=== PATIENT | female | born 1950 | race Two or more races ===

== ENCOUNTER → 2024-10-31 | Outpatient (CLI) | payer OTHER, MEDICAID, SELFPAY ==
[2024-10-31 10:43] LABS: Basophils % (Auto) 0 % (0-2.5); Eosinophils # (Auto) 0.1 Thou/mm3 (0.0-0.5); Eosinophils % (Auto) 1 % (0-10); Hematocrit 41.4 % (36.0-46.0); Hemoglobin 12.9 g/dL (12.0-16.0); Immature Granulocytes % (Auto) 0 % (0-0); Immature Granulocytes Auto 0.04 Thou/mm3 (0.00-0.00); Lymphocytes # (Auto) 2.4 Thou/mm3 (1.0-4.8); Lymphocytes % (Auto) 23 % (10-50); Mean Corpuscular HGB Conc 31.2 g/dl (31.0-37.0); Mean Corpuscular Volume 87 fL (80-100); Monocytes # (Auto) 0.8 Thou/mm3 (0.0-0.8); Monocytes % (Auto) 8 % (0-12); Neutrophils # (Auto) 6.8 Thou/mm3 (1.8-7.7); Neutrophils % (Auto) 67 % (37-80); Nucleated Red Blood Cell % 0 /100 WBC (0); Platelet Count 372 Thou/mm3 (140-440); RDW Standard Deviation 47.8 fL (36.4-46.3); Red Blood Count 4.77 Miln/mm3 (4.00-5.20); White Blood Count 10.2 Thou/mm3 (3.6-11.0)
[2024-10-31 10:55] LABS: Glucose Estimated Average 197 mg/dL (80-131); Hemoglobin A1C 8.5 % Hgb (4.8-6.0)
[2024-10-31 11:06] LABS: Alanine Aminotransferase 18 U/L (10-49); Albumin, Serum 4.7 gm/dL (3.4-4.8); Alkaline Phosphatase 78 U/L (46-116); Anion Gap 10 (7-16); Aspartate Amino Transferase 21 U/L (0-34); BUN/Creatinine Ratio 26 Ratio (12-20); Bilirubin,Direct 0.1 mg/dL (0.0-0.3); Bilirubin,Total 0.4 mg/dL (0.3-1.2); Blood Urea Nitrogen 23 mg/dL (9-23); Calcium 10.3 mg/dL (8.3-10.6); Carbon Dioxide 29.3 mMol/L (20.0-31.0); Cardiac Risk Estimate 2.6 RATIO (3.7-5.6); Chloride 101 mMol/L (98-107); Cholesterol 149 mg/dL (132-200); Creatinine (Component) 0.9 mg/dL (0.6-1.3); Glucose 152 mg/dL (74-106); HDL Cholesterol 57 mg/dL (40-60); LDL Cholesterol,Calculated 61 mg/dL (0-130); Osmolality,Calculated 286 (275-295); Potassium 4.6 mMol/L (3.4-5.1); Sodium 140 mMol/L (136-145); Total Protein 7.1 gm/dL (5.7-8.2); Triglycerides 154 mg/dL (30-150); eGFR > 60 See Note
[2024-10-31 11:14] LABS: Creatinine MALB Rnd Ur 29 mg/dL (30-125); Microalbumin, Random Urine < 3 mg/L (0-300)
== END | disposition home or self-care (01) ==
PROVIDERS: PCP Family Medicine; Referring Provider Family Medicine; Visit Provider Family Medicine
DX: E11.9 Type 2 diabetes mellitus without complications (principal); E78.5 Hyperlipidemia, unspecified; E51.9 Thiamine deficiency, unspecified
CPT/HCPCS: 36415; 80048; 80061; 80076; 82043; 82570; 83036; 85025

== ENCOUNTER → 2024-11-02 | Outpatient (CLI) | payer OTHER, MEDICAID, SELFPAY ==
--- NOTE | 2024-11-02 08:30 | XR_ITS ---
Examination: Screening digital mammography, bilateral Computer aided detection 3-D breast Tomosynthesis, bilateral Date and time of exam: November 02, 2024 0818 hours Indication: Screening Technique: Nonmagnified MLO, CC views of the breasts to been obtained, reconstructed from 3-D Tomosynthesis images. R2 computer aided detection program utilized for evaluation of suspicious masses and/or abnormal calcifications. 3-D Tomosynthesis images obtained. Findings: Scattered areas fibroglandular density 10 mm oval mass partially circumscribed upper outer right breast Benign calcifications Impression: BI-RADS Category 0: Incomplete: Need additional imaging evaluation 10 mm oval mass partially circumscribed upper outer right breast, recommend follow-up spot tomographic views of this mass as well as right breast sonography to complete the workup.
== END | disposition home or self-care (01) ==
LOC: CDIM 08:07
PROVIDERS: Referring Provider Family Medicine; Visit Provider Family Medicine
DX: Z12.31 Encounter for screening mammogram for malignant neoplasm of breast (principal); R92.8 Other abnormal and inconclusive findings on diagnostic imaging of breast; N63.11 Unspecified lump in the right breast, upper outer quadrant
CPT/HCPCS: 77063; 77067

== ENCOUNTER → 2024-11-09 | Outpatient (CLI) | payer OTHER, MEDICAID, SELFPAY ==
[2024-11-14 06:45] LABS: Fecal Globin Result NOT DETECTED (NOT DETECTED)
== END | disposition home or self-care (01) ==
LOC: SLDO 11:46
PROVIDERS: PCP Family Medicine; Referring Provider Family Medicine; Visit Provider Family Medicine
DX: Z12.11 Encounter for screening for malignant neoplasm of colon (principal); Z12.12 Encounter for screening for malignant neoplasm of rectum
CPT/HCPCS: 82274; G0328

== ENCOUNTER → 2024-11-23 | Outpatient (CLI) | payer OTHER, MEDICAID, SELFPAY ==
--- NOTE | 2024-11-23 09:30 | XR_ITS ---
Examination: Lumbar spine, 5 views Technique: Lumbar spine AP, lateral, coned lateral lower lumbar spine, bilateral obliques 5 views Exam date and time: November 23, 2024 1008 hours INDICATIONS: Low back pain beginning 8 years ago. FINDINGS: 23 mm lower pole right renal calculus Multiple calcifications in distribution of the right ureter Moderate osteopenia Diffuse facet arthropathy No lumbar fracture Advanced degenerative disc disease L5-S1 IMPRESSION: Advanced degenerative disc disease L5-S1 Consider CT scan abdomen pelvis without intravenous contrast follow-up to confirm right renal and multiple right ureteral calculi
--- NOTE | 2024-11-23 09:30 | XR_ITS ---
Examination: Shoulder,right, 3 views Technique: Shoulder AP internal rotation, AP external rotation, Y view shoulder, 3 views Exam date and time :November 23, 2024 1008 hours INDICATIONS: Right shoulder pain beginning 5 years ago FINDINGS: Moderate osteopenia Moderate osteoarthritis glenohumeral joint and acromioclavicular joint No fracture or shoulder dislocation IMPRESSION: Moderate shoulder osteoarthritis
== END | disposition home or self-care (01) ==
LOC: CDIM 09:23
PROVIDERS: PCP Family Medicine; Referring Provider Family Medicine; Visit Provider Family Medicine
DX: M51.379 Other intervertebral disc degeneration, lumbosacral region without mention of lumbar back pain or lower extremity pain (principal); M19.011 Primary osteoarthritis, right shoulder
CPT/HCPCS: 72110; 73030

== ENCOUNTER → 2024-11-25 | Outpatient (CLI) | payer OTHER, MEDICAID, SELFPAY ==
--- NOTE | 2024-11-25 08:45 | XR_ITS ---
Examination: Breast ultrasound, unilateral, right complete Date and time of exam: November 25, 2024 0918 hours INDICATIONS: Mammogram November 02, 2024 10 mm oval mass upper outer right breast, patient states sharp left breast pain noticed beginning 3 months ago Technique: Real-time monique scale ultrasonographic imaging performed right breast including all 4 quadrants as well as nipple retroareolar and axillary region. Findings: 10:00 cyst 6 x 6 mm 11:00 cyst 6 x 6 mm No solid nodules IMPRESSION: BI-RADS Category 2: Benign findings
--- NOTE | 2024-11-25 09:15 | XR_ITS ---
Examination: Diagnostic digital mammography, unilateral, right Computer aided detection 3-D breast Tomosynthesis, unilateral Date and time of exam: November 25, 2024 0940 hours INDICATIONS: Mammogram November 02, 2024 10 mm oval mass outer right breast Technique: Nonmagnified MLO, CC views of the right breast have been obtained, reconstructed from 3-D Tomosynthesis images. R2 computer aided detection program utilized for evaluation of suspicious masses and/or abnormal calcifications. 3-D Tomosynthesis images obtained. Findings: Scattered areas of fibroglandular density No suspicious mass depicted Impression: BI-RADS category 2: Benign findings Return to yearly follow-up mammography
== END | disposition home or self-care (01) ==
PROVIDERS: PCP Family Medicine; Referring Provider Family Medicine; Visit Provider Family Medicine
DX: R92.321 Mammographic fibroglandular density, right breast (principal)
CPT/HCPCS: 76641; 77061; 77065; G0279

== ENCOUNTER 2025-02-12 08:14 | Emergency (ER) | payer OTHER, MEDICAID, SELFPAY ==
[2025-02-12 08:32] VITALS: BP 97/63; PULSE 113; RESP 18; TEMP 36.9; O2SAT 95
[2025-02-12 08:36] VITALS: BMI 28.7
--- NOTE | 2025-02-12 09:01 | PD.EDRME ---
Rapid Medical Screening Exam [facility] Arrival date/time: 02/12/25 08:14 This is a 74 year old female comes in with complaints of lower back pain and right hip pain that started after a fall. Patient has a walker that has a sitting area and she missed the walker and fell back. Patient denies any loss of consciousness. Patient denies any head or neck injury. Patient complains of pain to her upper and lower back and to her right hip. Patient denies any numbness or tingling. Patient denies any loss of bowel or bladder control. Patient has a history of high blood pressure, diabetes, and hyperlipidemia. I have greeted and performed a focused initial assessment of this patient. Initial appropriate labs ordered at this time. A comprehensive ED assessment and evaluation of the patient and analysis of all test and completion of medical decision making process will be conducted by additional ED provider. Chief Complaint: Fall Time Seen by Provider: 02/12/25 08:19 Vital signs: Vital Signs Temperature 98.4 F 02/12/25 08:32 Pulse Rate 113 H 02/12/25 08:32 Respiratory Rate 18 02/12/25 08:32 Blood Pressure 97/63 02/12/25 08:32 Pulse Oximetry (%) 95 02/12/25 08:32 Oxygen Delivery Method Room Air 02/12/25 08:32
[2025-02-12] MEDS: HYDROcodone/APAP 5/325 TABLET 1 TAB PO ×2 (09:17→11:33)
[2025-02-12] MEDS: ONDANSETRON ODT 4 MG TABRAP PO (09:18)
--- NOTE | 2025-02-12 09:45 | XR_ITS ---
Examination: CT lumbar spine, without contrast. 2-D sagittal reconstructions. 2-D coronal reconstructions. 3-D reconstructions. Date and time of exam:February 12, 2025 0956 hours INDICATIONS: Patient fell 3 days ago within the lower back, lower back pain CTDI: vol (mGy):20.6 DLP: (mGycm):597 Technique: Multiple 1.25 mm axial sections of the lumbar spine without intravenous contrast have been obtained. 2-D sagittal and coronal reconstructions have been obtained. 3-D reconstructions have been obtained. Low dose protocols were performed. One or more of the following dose reduction techniques were used; automated exposure control, adjustment of the mA and/or KV according to patient size, use of iterative reconstruction technique. Findings: Satisfactory alignment lumbar vertebral bodies No lumbar fracture Advanced disc narrowing L5-S1 Lumbar pedicles, laminae, transverse and posterior spinous processes intact L5-S1 5 mm calcified central lumbar disc bulge contiguous with the right and left S1 nerve roots, extending to the bilateral neural foramina with moderate bilateral L5 ganglionic compression L4-L5 6 mm central lumbar disc bulge More cephalad levels unremarkable IMPRESSION: No lumbar fracture L5-S1 5 mm calcified simple lumbar disc bulge extending to the foraminal regions with moderate bilateral L5 ganglionic compression L4-L5 6 mm simple lumbar disc bulge
--- NOTE | 2025-02-12 09:45 | XR_ITS ---
Examination:Right hip AP, lateral, AP pelvis 3 views Technique: Hip AP lateral, AP pelvis, 3 views Exam date and time:February 05, 1007 hours INDICATIONS: Patient fell 3 days ago with injury to the right hip, right hip pain. FINDINGS: No hip fracture or hip dislocation Left bones of the pelvis is intact Moderate narrowing hip joints IMPRESSION: No hip or pelvic fracture.
--- NOTE | 2025-02-12 11:23 | EDNOTE_ITS ---
<Statement entered by Nini Zaidi MD - 02/19/25 04:26> As co-signing physician, I was present and available for consult prn. I concur with the plan and care as documented by the midlevel provider. ED Fall Injury RME/HPI General Chief Complaint: Fall Stated Complaint: FELL SATURDAY 02/10, HIT R) BACK/ARM/LEG ON FUTON Time Seen by Provider: 02/12/25 08:19 Arrival date/time: 02/12/25 08:14 This is a 74 year old female comes in with complaints of lower back pain and right hip pain that started after a fall. Patient has a walker that has a sitting area and she missed the walker and fell back. Patient denies any loss of consciousness. Patient denies any head or neck injury. Patient complains of pain to her upper and lower back and to her right hip. Patient denies any numbness or tingling. Patient denies any loss of bowel or bladder control. Patient has a history of high blood pressure, diabetes, and hyperlipidemia. Limitations: no limitations RME / HPI RME / HPI Narrative: 02/12/25 08:14 This is a 74 year old female comes in with complaints of lower back pain and right hip pain that started after a fall. Patient has a walker that has a sitting area and she missed the walker and fell back. Patient denies any loss of consciousness. Patient denies any head or neck injury. Patient complains of pain to her upper and lower back and to her right hip. Patient denies any numbness or tingling. Patient denies any loss of bowel or bladder control. Patient has a history of high blood pressure, diabetes, and hyperlipidemia. I have greeted and performed a focused initial assessment of this patient. Initial appropriate labs ordered at this time. A comprehensive ED assessment and evaluation of the patient and analysis of all test and completion of medical decision making process will be conducted by additional ED provider. Related Data Allergies Allergy/AdvReac Type Severity Reaction Status Date / Time aspirin Allergy Severe Swelling Verified 02/12/25 08:18 of Lip/Tongue/Throat Review of Systems Review of Systems Systems Reviewed: All systems reviewed, normal except as documented Past Medical History Past Medical History Comments PMH COMMENT: see hpi ED Exam General Limitations: Present no limitations General appearance: Present alert and in no apparent distress Head Head exam: Present atraumatic Eye Eye exam: Present normal appearance, PERRL and EOMI ENT ENT exam: Present normal exam, normal oropharynx and mucous membranes moist Neck Neck exam: Present normal inspection, full ROM and trachea midline Chest Chest inspection: Present normal inspection and symmetric chest wall rise Respiratory Respiratory exam: Present normal lung sounds bilaterally Cardiovascular Cardiovascular exam: Present regular rate and normal rhythm Abdominal Exam Abdominal exam: Present soft Extremities Exam Extremities exam: Present normal inspection and full ROM Back Exam Back exam: Present full ROM and other (pain to lateral muscles of lower back, no pain over spinal processes) Neurological Exam Neurological exam: Present alert, oriented X3 and CN II-XII intact Psychiatric Psychiatric exam: Present normal affect and normal mood Skin Skin exam: Present warm, dry and intact Course Quality Measures none Orders Category Date Time Status CT lumbar spine wo con Stat Exams 02/12/25 09:45 Completed XR hip RT w pelvis 2-3V Stat Exams 02/12/25 09:45 Completed HYDROcodone*/APAP 5/325 [Clayton 5/325] Med 02/12/25 09:00 Discontinued 1 tab PO X1 ONE HYDROcodone*/APAP 5/325 [Clayton 5/325] Med 02/12/25 11:28 Discontinued 1 tab PO X1 ONE Ondansetron Odt [Zofran Odt] Med 02/12/25 09:00 Discontinued 4 mg PO X1 ONE Vital Signs Vital signs: Vital Signs Temperature 98.4 F 02/12/25 08:32 Pulse Rate 113 H 02/12/25 08:32 Respiratory Rate 18 02/12/25 08:32 Blood Pressure 97/63 02/12/25 08:32 Pulse Oximetry (%) 95 02/12/25 08:32 Oxygen Delivery Method Room Air 02/12/25 08:32 Fall MDM Narrative MDM Narrative:: HIP X RAY: FINDINGS: No hip fracture or hip dislocation Left bones of the pelvis is intact Moderate narrowing hip joints IMPRESSION: No hip or pelvic fracture. LUMBAR SPINE CT: Findings: Satisfactory alignment lumbar vertebral bodies No lumbar fracture Advanced disc narrowing L5-S1 Lumbar pedicles, laminae, transverse and posterior spinous processes intact L5-S1 5 mm calcified central lumbar disc bulge contiguous with the right and left S1 nerve roots, extending to the bilateral neural foramina with moderate bilateral L5 ganglionic compression L4-L5 6 mm central lumbar disc bulge More cephalad levels unremarkable IMPRESSION: No lumbar fracture L5-S1 5 mm calcified simple lumbar disc bulge extending to the foraminal regions with moderate bilateral L5 ganglionic compression L4-L5 6 mm simple lumbar disc bulge Patient was given a dose of Clayton here for pain. Patient reports that it helped her pain. Will give her dose before she goes. Patient reports that she has tramadol to take at home. Will not give any prescription at this time. I also let her know that she can take Tylenol [id number]. Patient told to follow-up with primary provider in 1 to 2 days. Come back to the emergency room if symptoms change or worsen. Today patient had xray AND Ct scaN There was no acute fracture seen. Exam appeared unremarkable. I explained to patient at length that if there was continued pain to this area or worsened to come back to ED or see primary provider for more xrays or further testing such as CT scan or MRI. X rays are not perfect and sometimes serial films needed. Patient verbalized understanding. Patient states they will follow up with primary provider in 1-2 days or come back to ED if symptoms change or worsen. Patient data External records reviewed:: [facility] previous records Clinical information provided by:: patient Social determinants that could affect healthcare access:: none Patient has the following chronic illnesses:: see hpi How is presenting disease/condition affected by chronic disease/condition?: no chronic disease Evaluation data The following diagnostics were reviewed and interpreted by me:: radiology exam(s) Lab and/or radiology exams considered but not ordered:: none Interpretation Summary: see note Medications / Prescriptions Medications or Prescriptions considered but not ordered:: none Medication administrations:: Medication Administration History Discontinued Medications Hydrocodone Bitart/Acetaminophen (Hydrocodone/Apap 5/325 Tablet) 1 tab PO X1 ONE Stop: 02/12/25 09:01 Last Admin: 02/12/25 09:17 Dose: 1 tab Documented By: MANNY Hydrocodone Bitart/Acetaminophen (Hydrocodone/Apap 5/325 Tablet) 1 tab PO X1 ONE Stop: 02/12/25 11:29 Last Admin: 02/12/25 11:33 Dose: 1 tab Documented By: MANNY Ondansetron HCl (Ondansetron Odt 4 Mg Tabrap) 4 mg PO X1 ONE; Protocol Stop: 02/12/25 09:01 Last Admin: 02/12/25 09:18 Dose: 4 mg Documented By: MANNY see [facility] Consultations Consultation(s) initiated? (list below): No Diagnosis Fall Differential Diagnosis: compression fracture and other (hip pain/contusion,, chronic back pain) Most likely diagnosis given after review of the tests above:: contusion Admission Indicated Admission indicated?: not indicated Admission Request Was there a request for admission?: No Disposition Plan Disposition Plan: Discharge Discharge Attestation Discharge Attestation: The patient and all family members were given an opportunity to ask questions and understood the discharge instructions. Discharge instructions specifically effects, indications for sooner follow up or return to the emergency department, and the expected course of current diagnosis. Patient condition: Stable Discharge Plan Plan Patient Disposition: HOME (Self Care) Patient condition on transfer: Stable Prescriptions/Referrals Referrals: Arun Li MD [Primary Care Provider] - In 1 week Problem List Clinical Impression: Fall, Contusion Patient/Caregiver Discharge Instructions Discharge Activity: activity as tolerated Education Materials: Contusion Bone Tx Additional Instructions: Follow up with primary provider in 1-2 days. Come back to ED if symptoms change or worsen Print Language: Belarusian Stand Alone Forms: Maggy Award Info., Patient Portal Info Letter MILTON/MINE Supervising Physician MILTON/MINE Supervising Physician: ROXY
== END 2025-02-12 11:38 | disposition home or self-care (01) ==
PROVIDERS: Emergency Provider Emergency Medicine; PCP Family Medicine
DX: S70.01XA Contusion of right hip, initial encounter (principal); E11.9 Type 2 diabetes mellitus without complications; E78.5 Hyperlipidemia, unspecified; W19.XXXA Unspecified fall, initial encounter; M54.50 Low back pain, unspecified
CPT/HCPCS: 72131; 73502; 99284; Q0162; A9270

== ENCOUNTER → 2025-02-23 | Outpatient (CLI) | payer OTHER, MEDICAID, SELFPAY ==
[2025-02-23 10:35] LABS: Glucose Estimated Average 186 mg/dL (80-131); Hemoglobin A1C 8.1 % Hgb (4.8-6.0)
[2025-02-23 10:42] LABS: Anion Gap 7 (7-16); BUN/Creatinine Ratio 17 Ratio (12-20); Blood Urea Nitrogen 19 mg/dL (9-23); Calcium 8.8 mg/dL (8.3-10.6); Carbon Dioxide 29.3 mMol/L (20.0-31.0); Chloride 104 mMol/L (98-107); Creatinine (Component) 1.1 mg/dL (0.6-1.3); Glucose 99 mg/dL (74-106); Osmolality,Calculated 281 (275-295); Potassium 4.8 mMol/L (3.4-5.1); Sodium 140 mMol/L (136-145); eGFR 53 See Note
== END | disposition home or self-care (01) ==
PROVIDERS: PCP Family Medicine; Referring Provider Family Medicine; Visit Provider Family Medicine
DX: E11.65 Type 2 diabetes mellitus with hyperglycemia (principal)
CPT/HCPCS: 36415; 80048; 83036

== ENCOUNTER → 2025-03-02 | Outpatient (CLI) | payer OTHER, MEDICAID, SELFPAY ==
--- NOTE | 2025-03-02 10:30 | XR_ITS ---
MRI shoulder, right, without contrast. Date and time: March 02, 2025 1104 hours INDICATIONS: Right shoulder pain weakness decreased range of motion arm swelling 5 years Technique: Multiple axial, sagittal and coronal sections of the shoulder have been obtained. Siemens high-resolution 1.5 Tisha MRI scanner is utilized. Axial fat-suppressed sections, TR 2350, TE 18 T2-weighted coronal fat-saturated images, TR 3500, TE 7100 T1-weighted coronal images, TR 500, TE 15 T2-weighted sagittal fat-saturated images, TR 3500, TE 57 T1-weighted sagittal sections, TR 504, TE 13. Findings: Large, greater than 4 cm full-thickness rotator cuff tear Subscapularis insertion is intact. Subscapularis bursa is evident. Long head of the biceps is in the bicipital groove. No definite tear of the biceps superior labral anchor is seen. Retraction of the musculotendinous junction of the rotator cuff is prominent. Distance between the acromium and humeral head is 1 mm Atrophy of the supraspinatus muscle is severe. Atrophy of the infraspinatus muscle is severe. Sagittal sections demonstrate a horizontal acromion. Acromioclavicular joint demonstrates moderate osteoarthritis. Osacromiale is not identified. Anterior superior posterior labral tears. Bony glenoid fossa on the sagittal sections does not demonstrate osseous defect. Occult fracture or area of avascular necrosis is not seen. Acromioclavicular joint separation is not visible. Defect in the posterolateral margin of the humeral head is not seen Impression: Large full-thickness rotator cuff tear Anterior superior posterior labral tears
== END | disposition home or self-care (01) ==
PROVIDERS: PCP Family Medicine; Referring Provider Orthopaedic Surgery; Visit Provider Orthopaedic Surgery
DX: M75.121 Complete rotator cuff tear or rupture of right shoulder, not specified as traumatic (principal); S43.431A Superior glenoid labrum lesion of right shoulder, initial encounter; X58.XXXA Exposure to other specified factors, initial encounter
CPT/HCPCS: 73221

== ENCOUNTER → 2025-10-17 | Outpatient (CLI) | payer OTHER, MEDICAID, SELFPAY ==
[2025-10-17 11:30] LABS: Basophils # (Auto) 0.0 Thou/mm3 (0.0-0.2); Basophils % (Auto) 0 % (0-2.5); Eosinophils # (Auto) 0.2 Thou/mm3 (0.0-0.5); Eosinophils % (Auto) 2 % (0-10); Hematocrit 40.2 % (36.0-46.0); Hemoglobin 12.6 g/dL (12.0-16.0); Immature Granulocytes Auto 0.02 Thou/mm3 (0.00-0.00); Lymphocytes # (Auto) 2.1 Thou/mm3 (1.0-4.8); Lymphocytes % (Auto) 27 % (10-50); Mean Corpuscular HGB Conc 31.3 g/dl (31.0-37.0); Mean Corpuscular Hemoglobin 27.9 pg (25.0-35.0); Mean Corpuscular Volume 89 fL (80-100); Monocytes # (Auto) 0.7 Thou/mm3 (0.0-0.8); Monocytes % (Auto) 9 % (0-12); Neutrophils # (Auto) 4.8 Thou/mm3 (1.8-7.7); Neutrophils % (Auto) 62 % (37-80); Nucleated Red Blood Cell # 0.00 Thou/mm3 (0.00-0.00); Nucleated Red Blood Cell % 0 /100 WBC (0); Platelet Count 332 Thou/mm3 (140-440); RDW Standard Deviation 49.1 fL (36.4-46.3); Red Blood Count 4.52 Miln/mm3 (4.00-5.20); White Blood Count 7.7 Thou/mm3 (3.6-11.0)
[2025-10-17 11:47] LABS: Alanine Aminotransferase 15 U/L (10-49); Albumin, Serum 4.0 gm/dL (3.4-4.8); Albumin/Globulin Ratio 1.4 (1.2-2.2); Alkaline Phosphatase 80 U/L (46-116); Anion Gap 11 (7-16); Aspartate Amino Transferase 25 U/L (0-34); BUN/Creatinine Ratio 20 Ratio (12-20); Bilirubin,Total 0.4 mg/dL (0.3-1.2); Blood Urea Nitrogen 18 mg/dL (9-23); Calcium 9.5 mg/dL (8.3-10.6); Calcium (Corrected) 9.5 mg/dL (8.5-10.1); Carbon Dioxide 25.5 mMol/L (20.0-31.0); Chloride 108 mMol/L (98-107); Creatinine (Component) 0.9 mg/dL (0.6-1.3); Globulin 2.8 gm/dL (2.3-3.5); Glucose 112 mg/dL (74-106); Osmolality,Calculated 289 (275-295); Potassium 4.1 mMol/L (3.4-5.1); Sodium 144 mMol/L (136-145); Total Protein 6.8 gm/dL (5.7-8.2); eGFR > 60 See Note
== END | disposition home or self-care (01) ==
LOC: COPL 10:08
PROVIDERS: PCP Family Medicine; Referring Provider Orthopaedic Surgery Orthopaedic Trauma; Visit Provider Orthopaedic Surgery Orthopaedic Trauma
DX: Z01.812 Encounter for preprocedural laboratory examination (principal); Z01.818 Encounter for other preprocedural examination; E11.9 Type 2 diabetes mellitus without complications
CPT/HCPCS: 36415; 80053; 85025; 87081